=== PATIENT | female | born 1995 | race Caucasian/White ===

== ENCOUNTER 2023-02-07 08:33 | Emergency (ER) | payer BC ==
[~2023-02-07] VITALS: Ht 162.6 cm; Wt 70.3 kg
[2023-02-07 08:38] VITALS: BP 124/79
[2023-02-07] MEDS ORDERED: LIDOCAINE 5% 1 EA PATCH TP ONE (08:50)
[2023-02-07] MEDS ORDERED: ACETAMINOPHEN EXTRA STRENGTH 500 MG TAB PO ONE (08:50)
[2023-02-07] MEDS ORDERED: KETOROLAC 30 MG/ML VIAL IM ONE (08:50)
[2023-02-07] MEDS ORDERED: methocarbamoL 500 MG TAB PO ONE (08:50)
--- NOTE | 2023-02-07 09:07 | NUR ---
SUDDEN ONSET MIDDLE BACK PAIN, DENIES FALLS, DENIES TRAUMA.
[2023-02-07 10:25] LABS: APPEARANCE,URINE CLEAR (CLEAR); BILIRUBIN,URINE NEGATIVE (NEGATIVE); BLOOD, URINE TRACE-L (NEGATIVE); COLOR,URINE YELLOW (YELLOW); LEUKOCYTE ESTERASE ,URINE 1+ (NEGATIVE); NITRITE, URINE NEGATIVE (NEGATIVE); UGLUCOSE NEGATIVE (NEGATIVE)
--- NOTE | 2023-02-07 11:14 | NUR ---
ROAD TESTED WITH MINIMAL, TOLERABLE PAIN.
[2023-02-07] MEDS ORDERED: ACET-10509 PO (11:17)
[2023-02-07] MEDS ORDERED: NAPR-54 PO (11:17)
[2023-02-07] MEDS ORDERED: [UNRECOGNIZED DRUG - CODE] PO (11:17)
[2023-02-07 11:23] VITALS: BP 122/65
--- NOTE | 2023-02-07 11:24 | NUR ---
Patient discharged with v/s stable. Written and verbal after care instructions given and explained. Patient alert, oriented and verbalized understanding of instructions. Ambulatory with steady gait. All questions addressed prior to discharge. ID band removed. Patient advised to follow up with PMD. Rx of ROBAXIN, NAPROSYN, ACETAMINOPHEN given. Patient educated on indication of medication including possible reaction and side effects. Opportunity to ask questions provided and answered.
== END 2023-02-07 11:23 | disposition home or self-care (01) ==
LOC: MED 08:33
DX: M54.50 Low back pain, unspecified (principal); Z79.899 Other long term (current) drug therapy
CPT/HCPCS: 71045; 81001; 81025; 87086; 96372; 99284; J1885; Q0092